=== PATIENT | male | born 1975 | race Caucasian/White ===

== ENCOUNTER → 2023-11-08 18:39 | Outpatient (REF) | payer BC, SELFPAY | LOC: MRI 3T 18:39 | PROVIDERS: ATTENDING PHYSICIAN Otolaryngology; FAMILY PHYSICIAN Nurse Practitioner Family | DX: H90.42 Sensorineural hearing loss, unilateral, left ear, with unrestricted hearing on the contralateral side (principal) | CPT/HCPCS: 70553; A9575 ==

== ENCOUNTER 2024-10-28 21:15 | Emergency (ER) | payer BC, SELFPAY ==
[2024-10-28 21:20] VITALS: BP 111/77
[2024-10-28] MEDS: KEFLEX 500 MG PO (22:23)
[2024-10-28] MEDS: ADACEL 0.5 ML IM (22:24)
--- NOTE | 2024-10-28 22:52 | ED.SKININJ ---
HPI-Injury
General
Chief Complaint: Skin Surface Trauma
Source: patient
Exam Limitations: none
Time Seen by Provider: 10/28/24 22:04
Nursing documentation reviewed up to this point in time: agreed with
History of Present Illness-Injury
Is this injury a work related problem?: No
Is pt an associate of [facility]?: No
Initial Injury comments:
Patient states he accidentally shot a nail into his thumb. Able to remove nail on own. Injury occurred this afternoon. reports swelling to finger. Here for evaluation
Past History
Past History
ED Past Medical History: Other (Chronic back pain); Negative Asthma, HTN, Hypercholesterolemia or NIDDM
ED Past Surgical History: Other (back surgery )
Social History
Tobacco: Former smoker
Alcohol: Occasional
Drug: None
Personal:
Living: with family
Review of Systems
Review of Systems
Allergies reviewed?: Yes
All Other Systems: ROS reviewed and negative except as documented in HPI and ROS
Constitutional: Reports no symptoms
Musculoskeletal: Reports joint pain (pain to left distal thumb)
Skin: Reports other (Punture wound to left distal thumb)
Psychiatric: Reports no symptoms
Skin Exam
Puncture Wound
Left Thumb:
Type of puncture wound: nail
Age of puncture wound: within last several hours
Any active bleeding?: no active bleeding
Distal skin color and temperature: normal-warm & good color
Normal distal neurovascular exam: Yes
Phy Exam
General Physical Exam
General Presentation: well appearing and no apparent distress
General age: appears stated age
General Skin: warm and dry
General Habitus: normal
General Mental: alert
Musculoskeletal Exam
Musculoskeletal Exam: full ROM and neuro vasc intact
Skin Exam
Skin Exam: normal color, warm/dry and no rash
Psychiatric Exam
Psychiatric Exam: normal mood/affect
Course
Orders/Labs/Results
Orders:
Orders
10/28/24 21:23
Thumb/Finger(s) 2 View Lt [CR Finger(s)/thumb Min 2 Vw Lt] Urgent
Comment: pain and swelling to left thumb
Reason For Exam: nail gun to left distal thumb, nail removed,
10/28/24 22:14
Cephalexin Monohydrate [Keflex] 500 mg PO NOW STA
Tetanus/Diphth/Acelpertussis [Adacel] 0.5 ml IM .ONCE ONE
Vital Signs
Initial and Last Documented VS:
Initial Vital Signs
Temp Pulse Resp BP Pulse Ox
98.1 F 82 18 111/77 98
10/28/24 21:20 10/28/24 21:20 10/28/24 21:20 10/28/24 21:20 10/28/24 21:20
Last Documented Vital Signs
Temp Pulse Resp BP Pulse Ox
98.1 F 82 18 111/77 98
10/28/24 21:20 10/28/24 21:20 10/28/24 21:20 10/28/24 21:20 10/28/24 21:20
*Radiology
Radiology exam reviewed: radiology read reviewed
*Pulse Oximetry
Patient hypoxic: no
*Critical Care Note
Total Time (30-74mins, 75-104mins- exclusive of procedures): Not Applicable
Update Note
Update Note:
Patient with full ROM, full sensation to finger. No drainage. Mild erythema, mild swelling. WIll add Keflex prophylactically. Xray reveiwed. No evidence of fracture or foreign body. He is discharged home and will continue wound care on own.
Given instructions on s/s to return to ED. WIll follow up with PCP this week for wound check.
ED Attending Note
-
Portions of this chart may have been created with voice recognition software.� Occasional wrong word or��sound alike� substitutions may have occurred due to the inherent limitations of voice recognition software.
Discharge Plan
Departure
Patient Disposition: Home (Routine Discharge)
Date of Disposition: 10/28/24
Time of Disposition: 22:15
Patient with high blood pressure during this ER visit?: No
Condition: Good
Covid-19: Not Applicable
Discharge Problem:
Puncture wound of thumb
Instructions: Wound Care (DC), Puncture Wound
Prescriptions:
New
cephalexin 500 mg capsule
500 mg PO TID 10 Days Qty: 30 0RF
No Action
hydrocodone-acetaminophen 1 TABLET tablet
1 tab PO Q4HPRN PRN (Reason: pain) Qty: 15 0RF
prednisone 50 MG tablet
50 mg PO DAILY Qty: 4 0RF
cyclobenzaprine 10 MG tablet
10 mg PO TIDPRN PRN (Reason: muscle spasms) Qty: 15 1RF
levofloxacin 500 MG tablet
500 mg PO DAILY Qty: 7 0RF
Referrals:
Susie Shankar MD [Family Provider] - Follow up in 2-3 days
Activity Restrictions/Additional Instructions:
Warm soaks to your finger, 15-20 minutes, 4-5 times daily. Return to the emergency department immediately for fever/chills, increasing pain/redness/swelling to your finger, or for any further concerns.
Interventions
Interventions:
*Risk Screen - Suicide Last Done: 10/28/24 22:05
*General Assessment Last Done: 10/28/24 22:05
*Neglect/Abuse Screening Last Done: 10/28/24 22:05
*ED COVID-19 Vaccine History Last Done: 10/28/24 22:05
*Nursing Disposition Last Done: 10/28/24 22:31
ED-Skin Assessment Last Done: 10/28/24 22:05
Discharge Date and Time
Discharge Date/Time: 10/28/24 22:31
Print Language: [id number]
== END 2024-10-28 22:31 | disposition home or self-care (01) ==
LOC: EMR 21:15
PROVIDERS: EMERGENCY PHYSICIAN Emergency Medicine; FAMILY PHYSICIAN Internal Medicine
DX: S61.032A Puncture wound without foreign body of left thumb without damage to nail, initial encounter (principal); W45.0XXA Nail entering through skin, initial encounter; Z87.891 Personal history of nicotine dependence; Z23 Encounter for immunization
CPT/HCPCS: 90471; 99283; 73140; 90715